=== PATIENT | female | born 1950 | race Caucasian/White ===

== ENCOUNTER → 2017-01-04 | Outpatient (CLI) | payer MEDICARE, OTHER | END | disposition home or self-care (01) | LOC: CVU 14:33 | PROVIDERS: ATTEND Surgery Vascular Surgery | DX: I65.23 Occlusion and stenosis of bilateral carotid arteries (principal); H54.41 Blindness, right eye, normal vision left eye; Z86.73 Personal history of transient ischemic attack (TIA), and cerebral infarction without residual deficits | CPT/HCPCS: 93880 ==

== ENCOUNTER 2018-01-02 10:38 | Inpatient (IN) | payer MEDICARE, OTHER ==
[~2018-01-02] VITALS: Ht 170.2 cm; Wt 121.7 kg
[2018-01-02] MEDS ORDERED: SODIUM CHLORIDE FLUSH 10ML SYR IVF ONE (12:00)
[2018-01-02 12:19] LABS: BASOPHILS # (AUTO) 0.02 x10^3/uL (0-0.1); BASOPHILS % (AUTO) 0 % (0-1); EOSINOPHILS # (AUTO) 0.17 x10^3/uL (0-0.4); EOSINOPHILS % (AUTO) 2 % (1-7); LYMPHOCYTES # (AUTO) 0.65 x10^3/uL (1-3.4); LYMPHOCYTES % (AUTO) 6 % (22-44); MD NO; MEAN CORPUSCULAR HEMOGLOBIN 32.4 pg (27.0-34.8); MEAN CORPUSCULAR HGB CONC 33.9 g/dL (32.4-35.8); MEAN CORPUSCULAR VOLUME 95.6 fL (80-100); MONOCYTES % (AUTO) 5 % (2-9); NEUTROPHILS # (AUTO) 9.11 x10^3/uL (1.8-6.8); NEUTROPHILS % (AUTO) 87 % (42-75); PLATELET COUNT 176 x10^3/uL (130-400); RED BLOOD COUNT 3.58 x10^6/uL (3.82-5.3); RED CELL DISTRIBUTION WIDTH 13.4 % (9.6-15.2)
[2018-01-02 12:29] LABS: ALBUMIN 3.4 g/dL (3.4-5.0); ANION GAP 10 mmol/L (5-15); CALCIUM 8.6 mg/dL (8.5-10.1); CHLORIDE 106 mmol/L (98-107); CREATININE 2.42 mg/dL (0.55-1.02)
[2018-01-02] MEDS ORDERED: CEFAZOLIN PMX 1GM/50ML 50 ML IV ONE (13:00)
[2018-01-02 13:04] LABS: HCT (SEDRATE) 34.2 % (34.6-47.8)
[2018-01-02] MEDS ORDERED: CEFAZOLIN PMX 1GM/50ML 50 ML ONE (13:11)
[2018-01-02] MEDS ORDERED: SODIUM CHLORIDE FLUSH 10ML SYR IVF PRN (13:30)
[2018-01-02] MEDS ORDERED: LIRA0.6P2 SQ (13:36)
[2018-01-02] MEDS ORDERED: PARI2CAP3 PO (13:36)
[2018-01-02] MEDS ORDERED: ATOR10TA9 PO (13:36)
[2018-01-02] MEDS ORDERED: LOSA100T6 PO (13:36)
[2018-01-02] MEDS ORDERED: CARV6.2512 PO (13:36)
[2018-01-02] MEDS ORDERED: ADAL40KI IM (13:36)
[2018-01-02] MEDS ORDERED: AMLO5TAB2 PO (13:36)
[2018-01-02] MEDS ORDERED: LEVO25TA2 PO (13:36)
[2018-01-02] MEDS ORDERED: FURO40TA6 PO (13:36)
[2018-01-02] MEDS ORDERED: FLUT1DIS IH ×2 (13:38)
[2018-01-02] MEDS ORDERED: ALBU5SOL6 INH (13:38)
[2018-01-02] MEDS ORDERED: ACETAMINOPHEN 325 MG TABLET PO PRN (14:00)
[2018-01-02] MEDS ORDERED: ONDANSETRON 2MG/ML, 2ML IVPush PRN (14:00)
[2018-01-02] MEDS ORDERED: morphine SULFATE 10 MG/ML, 1ML IVPush PRN (14:00)
[2018-01-02 14:31] VITALS: BP 148/79
[2018-01-02 14:43] LABS: FREE T4 (FREE THYROXINE) 1.32 ng/dL (0.76-1.46); THYROID STIMULATING HORMONE 1.02 mIU/L (0.358-3.740)
[2018-01-02 15:00] VITALS: BP 148/79
[2018-01-02 15:02] LABS: HEMOGLOBIN A1C 6.3 % (4.2-6.3)
[2018-01-02] MEDS: CEFTAROLINE 300 MG in SODIUM CHLORIDE 0.9% 100 ML IV SCH (16:54)
[2018-01-02] MEDS: HEPARIN 5,000 UNITS/ML, 1ML SQ SCH (16:55)
[2018-01-02] MEDS: INSULIN LISPRO 100 UNITS/ML, PEN SQ-INSULIN SCH ×2 (18:05→21:00)
[2018-01-02] MEDS: ATORVASTATIN 10 MG TABLET PO SCH (21:17)
[2018-01-02] MEDS: CARVEDILOL 6.25 MG TABLET PO SCH (21:17)
[2018-01-02 21:58] VITALS: BP 146/73
[2018-01-03] MEDS: HEPARIN 5,000 UNITS/ML, 1ML SQ SCH ×3 (00:54→18:25)
[2018-01-03 00:56] VITALS: BP 110/66
[2018-01-03 04:32] LABS: BASOPHILS # (AUTO) 0.06 x10^3/uL (0-0.1); BASOPHILS % (AUTO) 1 % (0-1); EOSINOPHILS # (AUTO) 0.15 x10^3/uL (0-0.4); EOSINOPHILS % (AUTO) 2 % (1-7); LYMPHOCYTES # (AUTO) 0.84 x10^3/uL (1-3.4); LYMPHOCYTES % (AUTO) 10 % (22-44); MD NO; MEAN CORPUSCULAR HEMOGLOBIN 32.5 pg (27.0-34.8); MEAN CORPUSCULAR HGB CONC 34.2 g/dL (32.4-35.8); MEAN PLATELET VOLUME 8.3 fL (7.4-10.4); MONOCYTES # (AUTO) 0.58 x10^3/uL (0.2-0.8); MONOCYTES % (AUTO) 7 % (2-9); NEUTROPHILS # (AUTO) 6.97 x10^3/uL (1.8-6.8); NEUTROPHILS % (AUTO) 81 % (42-75); PLATELET COUNT 173 x10^3/uL (130-400); RED BLOOD COUNT 3.29 x10^6/uL (3.82-5.3); RED CELL DISTRIBUTION WIDTH 13.3 % (9.6-15.2)
[2018-01-03 04:35] LABS: ANION GAP 8 mmol/L (5-15); CALCIUM 8.4 mg/dL (8.5-10.1); CHLORIDE 110 mmol/L (98-107)
[2018-01-03 04:37] LABS: CREATININE 2.29 mg/dL (0.55-1.02)
[2018-01-03] MEDS: LEVOTHYROXINE 25 MCG TABLET PO SCH (05:53)
[2018-01-03] MEDS: CEFTAROLINE 300 MG in SODIUM CHLORIDE 0.9% 100 ML IV SCH ×2 (05:54→18:26)
[2018-01-03] MEDS: INSULIN LISPRO 100 UNITS/ML, PEN SQ-INSULIN SCH ×4 (07:00→20:31)
[2018-01-03 08:14] VITALS: BP 133/69
[2018-01-03] MEDS: CARVEDILOL 6.25 MG TABLET PO SCH ×2 (10:01→20:28)
[2018-01-03] MEDS: FUROSEMIDE 40 MG TABLET PO SCH (10:01)
[2018-01-03] MEDS: LOSARTAN 50MG TABLET PO SCH (10:01)
[2018-01-03] MEDS: AMLODIPINE 5 MG TABLET PO SCH (10:01)
[2018-01-03] MEDS: PARICALCITOL 1 MCG CAPSULE PO SCH (10:02)
[2018-01-03 13:09] VITALS: BP 157/80
[2018-01-03 20:10] VITALS: BP 117/55
[2018-01-03] MEDS: ATORVASTATIN 10 MG TABLET PO SCH (20:27)
[2018-01-04] MEDS: HEPARIN 5,000 UNITS/ML, 1ML SQ SCH ×3 (02:03→16:25)
[2018-01-04 04:09] VITALS: BP 108/62
[2018-01-04 05:17] LABS: ANION GAP 7 mmol/L (5-15); CALCIUM 8.6 mg/dL (8.5-10.1); CHLORIDE 109 mmol/L (98-107)
[2018-01-04 05:18] LABS: CREATININE 2.88 mg/dL (0.55-1.02)
[2018-01-04] MEDS: LEVOTHYROXINE 25 MCG TABLET PO SCH (05:58)
[2018-01-04] MEDS: CEFTAROLINE 300 MG in SODIUM CHLORIDE 0.9% 100 ML IV SCH ×2 (05:59→19:09)
[2018-01-04] MEDS: INSULIN LISPRO 100 UNITS/ML, PEN SQ-INSULIN SCH ×4 (07:00→20:22)
[2018-01-04 08:01] VITALS: BP 136/53
[2018-01-04] MEDS: LOSARTAN 50MG TABLET PO SCH (09:04)
[2018-01-04] MEDS: FUROSEMIDE 40 MG TABLET PO SCH (09:05)
[2018-01-04] MEDS: AMLODIPINE 5 MG TABLET PO SCH (09:05)
[2018-01-04] MEDS: CARVEDILOL 6.25 MG TABLET PO SCH ×2 (09:06→20:21)
[2018-01-04] MEDS: PARICALCITOL 1 MCG CAPSULE PO SCH (09:09)
[2018-01-04 12:20] VITALS: BP 126/71
[2018-01-04 20:17] VITALS: BP 151/68
[2018-01-04] MEDS: ATORVASTATIN 10 MG TABLET PO SCH (20:21)
[2018-01-05] MEDS: HEPARIN 5,000 UNITS/ML, 1ML SQ SCH ×2 (00:16→08:36)
[2018-01-05 00:17] VITALS: BP 123/67
[2018-01-05 05:04] LABS: ANION GAP 6 mmol/L (5-15); CALCIUM 8.4 mg/dL (8.5-10.1); CHLORIDE 108 mmol/L (98-107)
[2018-01-05 05:05] LABS: CREATININE 2.92 mg/dL (0.55-1.02)
[2018-01-05] MEDS: CEFTAROLINE 300 MG in SODIUM CHLORIDE 0.9% 100 ML IV SCH (05:45)
[2018-01-05] MEDS: LEVOTHYROXINE 25 MCG TABLET PO SCH (05:45)
[2018-01-05] MEDS: INSULIN LISPRO 100 UNITS/ML, PEN SQ-INSULIN SCH ×3 (07:00→16:00)
[2018-01-05 07:27] VITALS: BP 117/72
[2018-01-05] MEDS: AMLODIPINE 5 MG TABLET PO SCH (08:32)
[2018-01-05] MEDS: FUROSEMIDE 40 MG TABLET PO SCH (08:33)
[2018-01-05] MEDS: CARVEDILOL 6.25 MG TABLET PO SCH (08:33)
[2018-01-05] MEDS: LOSARTAN 50MG TABLET PO SCH (08:34)
[2018-01-05] MEDS ORDERED: AMOXICILLIN/CLAV 875-125MG TABLET PO SCH (09:00)
[2018-01-05] MEDS ORDERED: SULFAMETH./TRIMETHOPRIM SS 400MG/80MG TABLET PO SCH (09:00)
[2018-01-05] MEDS: PARICALCITOL 1 MCG CAPSULE PO SCH (09:00)
[2018-01-05 13:21] VITALS: BP 141/65
[2018-01-05] MEDS ORDERED: AMOX1TAB12 PO (14:46)
[2018-01-05] MEDS ORDERED: TRAM50TA2 PO (14:46)
[2018-01-05] MEDS ORDERED: SULF-16 PO (14:46)
[2018-01-05] MEDS ORDERED: LACT1CAP24 PO (14:49)
== END 2018-01-05 16:15 | disposition home or self-care (01) | DRG 603 ==
LOC: ED 13:18 → 3NE 13:22 → 3NW 14:32 → DCLOUNGE 01-05 15:58
PROVIDERS: ADMIT Hospitalist; ATTEND Hospitalist
DX: L03.116 Cellulitis of left lower limb (principal); N18.4 Chronic kidney disease, stage 4 (severe); Z68.41 Body mass index [BMI] 40.0-44.9, adult; E11.42 Type 2 diabetes mellitus with diabetic polyneuropathy; E11.22 Type 2 diabetes mellitus with diabetic chronic kidney disease; I12.9 Hypertensive chronic kidney disease with stage 1 through stage 4 chronic kidney disease, or unspecified chronic kidney disease; E66.01 Morbid (severe) obesity due to excess calories; J40 Bronchitis, not specified as acute or chronic; E03.9 Hypothyroidism, unspecified; E78.5 Hyperlipidemia, unspecified; E78.00 Pure hypercholesterolemia, unspecified; M06.9 Rheumatoid arthritis, unspecified; R00.0 Tachycardia, unspecified; Z79.899 Other long term (current) drug therapy; Z87.891 Personal history of nicotine dependence; Z89.421 Acquired absence of other right toe(s); Z82.49 Family history of ischemic heart disease and other diseases of the circulatory system; Z90.49 Acquired absence of other specified parts of digestive tract; Z98.84 Bariatric surgery status; Z88.0 Allergy status to penicillin
CPT/HCPCS: 36415; 80048; 82040; 82962; 83036; 83605; 83735; 84100; 84145; 84439; 84443; 85025; 85651; 86140; 87040; 96365; 99285; J0690; J0712; J1644; J1815

== ENCOUNTER 2018-01-09 12:39 | Inpatient (IN) | payer MEDICARE, OTHER ==
[~2018-01-09] VITALS: Ht 170.2 cm; Wt 119.5 kg
[~2018-01-09 12:39] MED LIST: ADAL40KI IM; ALBU5SOL6 INH; AMLO5TAB7 PO; AMOX1TAB12 PO; ATOR10TA9 PO; CARV6.2512 PO; FLUT1DIS IH; FURO40TA6 PO; LACT1CAP24 PO; LEVO25TA2 PO; LIRA0.6P2 SQ; LOSA100T7 PO; PARI2CAP3 PO; SULF-16 PO; TRAM50TA2 PO
[2018-01-09] MEDS ORDERED: VANCOMYCIN PER PHARMACY MC ONE (13:00)
[2018-01-09] MEDS ORDERED: SODIUM CHLORIDE FLUSH 10ML SYR IVF ONE (13:00)
[2018-01-09 13:30] LABS: BASOPHILS # (AUTO) 0.02 x10^3/uL (0-0.1); BASOPHILS % (AUTO) 0 % (0-1); EOSINOPHILS # (AUTO) 0.25 x10^3/uL (0-0.4); EOSINOPHILS % (AUTO) 3 % (1-7); LYMPHOCYTES # (AUTO) 0.65 x10^3/uL (1-3.4); LYMPHOCYTES % (AUTO) 7 % (22-44); MD NO; MEAN CORPUSCULAR HEMOGLOBIN 31.5 pg (27.0-34.8); MEAN CORPUSCULAR HGB CONC 33.9 g/dL (32.4-35.8); MEAN PLATELET VOLUME 7.6 fL (7.4-10.4); MONOCYTES # (AUTO) 0.62 x10^3/uL (0.2-0.8); MONOCYTES % (AUTO) 7 % (2-9); NEUTROPHILS # (AUTO) 7.94 x10^3/uL (1.8-6.8); NEUTROPHILS % (AUTO) 84 % (42-75); PLATELET COUNT 280 x10^3/uL (130-400); RED BLOOD COUNT 3.26 x10^6/uL (3.82-5.3)
[2018-01-09] MEDS ORDERED: VANCOMYCIN 1,700 MG in SODIUM CHLORIDE 0.9% 250 ML IV ONE (13:30)
[2018-01-09 13:37] LABS: ALBUMIN 2.8 g/dL (3.4-5.0); ANION GAP 11 mmol/L (5-15); CALCIUM 8.7 mg/dL (8.5-10.1); CHLORIDE 107 mmol/L (98-107); CREATININE 3.61 mg/dL (0.55-1.02)
[2018-01-09] MEDS ORDERED: ONDANSETRON ODT 4 MG PO PRN (15:00)
[2018-01-09] MEDS ORDERED: GLUCAGON 1 MG IM PRN (15:00)
[2018-01-09] MEDS ORDERED: DEXTROSE 4 GM TAB.CHEW PO PRN (15:00)
[2018-01-09] MEDS ORDERED: DEXTROSE 50%, 50ML SYRINGE IVPush PRN (15:00)
[2018-01-09] MEDS ORDERED: VANCOMYCIN PER PHARMACY MC PRN (15:00)
[2018-01-09] MEDS ORDERED: ACETAMINOPHEN 325 MG TABLET PO PRN (15:00)
[2018-01-09] MEDS ORDERED: ONDANSETRON 2MG/ML, 2ML IVPush PRN (15:00)
[2018-01-09] MEDS ORDERED: hydrALAzine 20 MG/ML, 1ML IVPush PRN (15:00)
[2018-01-09] MEDS ORDERED: LABETALOL 5MG/ML, 20ML IVPush PRN (15:00)
[2018-01-09] MEDS ORDERED: morphine SULFATE 10 MG/ML, 1ML IVPush PRN (15:00)
[2018-01-09] MEDS ORDERED: TEMAZEPAM 15 MG CAPSULE PO PRN (15:00)
[2018-01-09] MEDS ORDERED: PHARMACOKINETIC MONITORING MC PRN (15:30)
[2018-01-09] MEDS ORDERED: PHARMACOKINETIC CONSULTATION MC ONE (15:30)
[2018-01-09] MEDS: INSULIN LISPRO 100 UNITS/ML, PEN SQ-INSULIN SCH ×2 (16:00→20:48)
[2018-01-09] MEDS: HEPARIN 5,000 UNITS/ML, 1ML SQ SCH (18:21)
[2018-01-09 18:44] VITALS: BP 126/73
[2018-01-09 19:07] VITALS: BP 107/63
[2018-01-09] MEDS: ATORVASTATIN 10 MG TABLET PO SCH (20:26)
[2018-01-09] MEDS: CARVEDILOL 6.25 MG TABLET PO SCH (20:26)
[2018-01-09] MEDS: PIPERACILLIN/TAZO 2.25 GM in SODIUM CHLORIDE 0.9% 50 ML IV SCH (20:26)
[2018-01-09] MEDS: SODIUM CHLORIDE FLUSH 10ML SYR IVF SCH (20:28)
[2018-01-10 01:28] VITALS: BP 106/66
[2018-01-10] MEDS: HEPARIN 5,000 UNITS/ML, 1ML SQ SCH ×3 (02:41→17:09)
[2018-01-10 05:09] LABS: BASOPHILS # (AUTO) 0.04 x10^3/uL (0-0.1); BASOPHILS % (AUTO) 1 % (0-1); EOSINOPHILS # (AUTO) 0.28 x10^3/uL (0-0.4); EOSINOPHILS % (AUTO) 4 % (1-7); LYMPHOCYTES # (AUTO) 0.83 x10^3/uL (1-3.4); LYMPHOCYTES % (AUTO) 12 % (22-44); MD NO; MEAN CORPUSCULAR HEMOGLOBIN 31.7 pg (27.0-34.8); MEAN CORPUSCULAR HGB CONC 33.9 g/dL (32.4-35.8); MEAN CORPUSCULAR VOLUME 93.6 fL (80-100); MEAN PLATELET VOLUME 7.6 fL (7.4-10.4); MONOCYTES # (AUTO) 0.56 x10^3/uL (0.2-0.8); MONOCYTES % (AUTO) 8 % (2-9); NEUTROPHILS # (AUTO) 5.27 x10^3/uL (1.8-6.8); NEUTROPHILS % (AUTO) 76 % (42-75); PLATELET COUNT 248 x10^3/uL (130-400); RED BLOOD COUNT 2.97 x10^6/uL (3.82-5.3)
[2018-01-10 05:16] LABS: ALBUMIN 2.3 g/dL (3.4-5.0); ANION GAP 9 mmol/L (5-15); CALCIUM 8.5 mg/dL (8.5-10.1); CHLORIDE 111 mmol/L (98-107)
[2018-01-10 05:20] LABS: ALANINE AMINOTRANSFERASE 12 U/L (12-78); ALKALINE PHOSPHATASE 70 U/L (45-117); BILIRUBIN,TOTAL 0.4 mg/dL (0.2-1.0); CREATININE 3.29 mg/dL (0.55-1.02); TOTAL PROTEIN 6.4 g/dL (6.4-8.2)
[2018-01-10] MEDS: PIPERACILLIN/TAZO 2.25 GM in SODIUM CHLORIDE 0.9% 50 ML IV SCH ×3 (05:29→20:46)
[2018-01-10] MEDS: LEVOTHYROXINE 25 MCG TABLET PO SCH (05:29)
[2018-01-10 05:33] LABS: HEMOGLOBIN A1C 6.3 % (4.2-6.3)
[2018-01-10 07:11] VITALS: BP 129/70
[2018-01-10] MEDS: CARVEDILOL 6.25 MG TABLET PO SCH ×2 (07:55→20:46)
[2018-01-10] MEDS: AMLODIPINE 5 MG TABLET PO SCH (07:55)
[2018-01-10] MEDS: PARICALCITOL 1 MCG CAPSULE PO SCH (07:56)
[2018-01-10] MEDS: SODIUM CHLORIDE FLUSH 10ML SYR IVF SCH ×2 (07:56→20:46)
[2018-01-10] MEDS: INSULIN LISPRO 100 UNITS/ML, PEN SQ-INSULIN SCH ×4 (07:59→21:00)
[2018-01-10] MEDS ORDERED: FUROSEMIDE 40 MG TABLET PO SCH (09:00)
[2018-01-10] MEDS ORDERED: LOSARTAN 50MG TABLET PO SCH (09:00)
[2018-01-10 12:00] VITALS: BP 141/76
[2018-01-10 19:34] VITALS: BP 114/65
[2018-01-10] MEDS: ATORVASTATIN 10 MG TABLET PO SCH (20:46)
[2018-01-11 01:03] VITALS: BP 148/75
[2018-01-11] MEDS: HEPARIN 5,000 UNITS/ML, 1ML SQ SCH ×3 (01:57→17:50)
[2018-01-11] MEDS: PIPERACILLIN/TAZO 2.25 GM in SODIUM CHLORIDE 0.9% 50 ML IV SCH ×4 (04:53→23:42)
[2018-01-11 04:55] LABS: BASOPHILS # (AUTO) 0.01 x10^3/uL (0-0.1); BASOPHILS % (AUTO) 0 % (0-1); EOSINOPHILS # (AUTO) 0.23 x10^3/uL (0-0.4); EOSINOPHILS % (AUTO) 3 % (1-7); LYMPHOCYTES # (AUTO) 1.18 x10^3/uL (1-3.4); LYMPHOCYTES % (AUTO) 17 % (22-44); MD NO; MEAN CORPUSCULAR HEMOGLOBIN 31.4 pg (27.0-34.8); MEAN CORPUSCULAR HGB CONC 33.3 g/dL (32.4-35.8); MEAN CORPUSCULAR VOLUME 94.2 fL (80-100); MEAN PLATELET VOLUME 7.6 fL (7.4-10.4); MONOCYTES # (AUTO) 0.47 x10^3/uL (0.2-0.8); MONOCYTES % (AUTO) 7 % (2-9); NEUTROPHILS # (AUTO) 4.99 x10^3/uL (1.8-6.8); NEUTROPHILS % (AUTO) 73 % (42-75); PLATELET COUNT 258 x10^3/uL (130-400); RED BLOOD COUNT 2.94 x10^6/uL (3.82-5.3)
[2018-01-11 05:15] LABS: ANION GAP 7 mmol/L (5-15); CALCIUM 8.6 mg/dL (8.5-10.1); CHLORIDE 114 mmol/L (98-107)
[2018-01-11 05:19] LABS: CREATININE 3.39 mg/dL (0.55-1.02); VANCOMYCIN,RANDOM 10.4 mcg/mL
[2018-01-11] MEDS: LEVOTHYROXINE 25 MCG TABLET PO SCH (05:36)
[2018-01-11 06:44] VITALS: BP 121/68
[2018-01-11] MEDS: SODIUM CHLORIDE 0.9% 500 ML IV SCH ×2 (08:30→17:50)
[2018-01-11] MEDS: INSULIN LISPRO 100 UNITS/ML, PEN SQ-INSULIN SCH ×4 (08:31→20:36)
[2018-01-11] MEDS: SODIUM CHLORIDE FLUSH 10ML SYR IVF SCH ×2 (08:32→20:36)
[2018-01-11] MEDS: AMLODIPINE 5 MG TABLET PO SCH (08:32)
[2018-01-11] MEDS: CARVEDILOL 6.25 MG TABLET PO SCH ×2 (08:32→20:36)
[2018-01-11] MEDS: PARICALCITOL 1 MCG CAPSULE PO SCH (08:33)
[2018-01-11] MEDS ORDERED: VANCOMYCIN 2,000 MG in SODIUM CHLORIDE 0.9% 500 ML IV ONE (10:00)
[2018-01-11 15:42] VITALS: BP 123/72
[2018-01-11 19:27] VITALS: BP 108/65
[2018-01-11] MEDS: ATORVASTATIN 10 MG TABLET PO SCH (20:36)
[2018-01-12] MEDS: HEPARIN 5,000 UNITS/ML, 1ML SQ SCH ×3 (01:08→18:00)
[2018-01-12] MEDS: SODIUM CHLORIDE 0.9% 500 ML IV SCH (01:08)
[2018-01-12 03:50] VITALS: BP 121/66
[2018-01-12 05:52] LABS: ANION GAP 7 mmol/L (5-15); CALCIUM 8.6 mg/dL (8.5-10.1); CHLORIDE 116 mmol/L (98-107); CREATININE 2.91 mg/dL (0.55-1.02)
[2018-01-12] MEDS: LEVOTHYROXINE 25 MCG TABLET PO SCH (06:14)
[2018-01-12] MEDS: PIPERACILLIN/TAZO 2.25 GM in SODIUM CHLORIDE 0.9% 50 ML IV SCH ×2 (06:14→12:09)
[2018-01-12 06:56] VITALS: BP 124/70
[2018-01-12] MEDS: INSULIN LISPRO 100 UNITS/ML, PEN SQ-INSULIN SCH ×4 (07:00→20:04)
[2018-01-12] MEDS: PARICALCITOL 1 MCG CAPSULE PO SCH (08:33)
[2018-01-12] MEDS: CARVEDILOL 6.25 MG TABLET PO SCH ×2 (08:34→20:03)
[2018-01-12] MEDS: AMLODIPINE 5 MG TABLET PO SCH (08:34)
[2018-01-12] MEDS: SODIUM CHLORIDE FLUSH 10ML SYR IVF SCH ×2 (08:34→20:04)
[2018-01-12 14:33] VITALS: BP 134/73
[2018-01-12 19:11] VITALS: BP 136/64
[2018-01-12] MEDS: PIPERACILLIN/TAZO/PMX 2.25GM 50 ML IV SCH (20:03)
[2018-01-12] MEDS: ATORVASTATIN 10 MG TABLET PO SCH (20:03)
[2018-01-13] MEDS: PIPERACILLIN/TAZO/PMX 2.25GM 50 ML IV SCH ×4 (02:22→23:46)
[2018-01-13] MEDS: HEPARIN 5,000 UNITS/ML, 1ML SQ SCH ×3 (02:22→18:00)
[2018-01-13 02:27] VITALS: BP 125/64
[2018-01-13] MEDS: LEVOTHYROXINE 25 MCG TABLET PO SCH (05:44)
[2018-01-13 06:35] LABS: BASOPHILS # (AUTO) 0.02 x10^3/uL (0-0.1); BASOPHILS % (AUTO) 0 % (0-1); EOSINOPHILS # (AUTO) 0.33 x10^3/uL (0-0.4); EOSINOPHILS % (AUTO) 5 % (1-7); LYMPHOCYTES # (AUTO) 1.12 x10^3/uL (1-3.4); LYMPHOCYTES % (AUTO) 15 % (22-44); MD NO; MEAN CORPUSCULAR HEMOGLOBIN 32.5 pg (27.0-34.8); MEAN PLATELET VOLUME 7.4 fL (7.4-10.4); MONOCYTES # (AUTO) 0.37 x10^3/uL (0.2-0.8); MONOCYTES % (AUTO) 5 % (2-9); NEUTROPHILS # (AUTO) 5.46 x10^3/uL (1.8-6.8); NEUTROPHILS % (AUTO) 75 % (42-75); PLATELET COUNT 292 x10^3/uL (130-400); RED BLOOD COUNT 3.08 x10^6/uL (3.82-5.3); RED CELL DISTRIBUTION WIDTH 13.4 % (9.6-15.2)
[2018-01-13 06:46] LABS: ANION GAP 6 mmol/L (5-15); CHLORIDE 116 mmol/L (98-107); CREATININE 2.42 mg/dL (0.55-1.02)
[2018-01-13 06:47] LABS: PROTHROMBIN TIME 10.3 Seconds (9.6-11.5)
[2018-01-13 06:48] LABS: VANCOMYCIN,RANDOM 16.8 mcg/mL
[2018-01-13] MEDS: INSULIN LISPRO 100 UNITS/ML, PEN SQ-INSULIN SCH ×4 (07:00→23:47)
[2018-01-13 07:18] VITALS: BP 144/74
[2018-01-13] MEDS: SODIUM CHLORIDE FLUSH 10ML SYR IVF SCH ×2 (08:26→23:46)
[2018-01-13] MEDS: CARVEDILOL 6.25 MG TABLET PO SCH ×2 (08:26→23:48)
[2018-01-13] MEDS: AMLODIPINE 5 MG TABLET PO SCH (09:00)
[2018-01-13] MEDS: PARICALCITOL 1 MCG CAPSULE PO SCH (09:00)
[2018-01-13] MEDS ORDERED: VANCOMYCIN 2,000 MG in SODIUM CHLORIDE 0.9% 500 ML IV SCH (09:30)
[2018-01-13 12:28] VITALS: BP 144/71
[2018-01-13 18:42] VITALS: BP 158/76
[2018-01-13] MEDS ORDERED: FENTANYL PF 100 MCG/2ML ONE ×2 (20:12→22:03)
[2018-01-13] MEDS ORDERED: MIDAZOLAM 1 MG/ML, 2ML ONE (20:12)
[2018-01-13] MEDS ORDERED: ONDANSETRON 2MG/ML, 2ML ONE (20:52)
[2018-01-13] MEDS ORDERED: VANCOMYCIN 500 MG ONE (20:52)
[2018-01-13] MEDS ORDERED: PROPOFOL 10 MG/ML, 20ML ONE (20:52)
[2018-01-13] MEDS ORDERED: CEFAZOLIN 1,000 MG ONE (20:52)
[2018-01-13] MEDS ORDERED: ACETAMINOPHEN 325 MG TABLET PO PRN (22:00)
[2018-01-13] MEDS ORDERED: MIDAZOLAM 1 MG/ML, 2ML IV PRN (22:00)
[2018-01-13] MEDS ORDERED: PROMETHAZINE 25 MG/ML, 1ML IV PRN (22:00)
[2018-01-13] MEDS ORDERED: PROMETHAZINE 25 MG SUPP PR PRN (22:00)
[2018-01-13] MEDS ORDERED: PROMETHAZINE 12.5 MG SUPP PR PRN (22:00)
[2018-01-13] MEDS ORDERED: ONDANSETRON ODT 8 MG PO PRN (22:00)
[2018-01-13] MEDS ORDERED: MORPHINE SULFATE 4 MG/ML, 1ML IVPush PRN (22:00)
[2018-01-13] MEDS ORDERED: FENTANYL PF 100 MCG/2ML IV PRN (22:00)
[2018-01-13] MEDS ORDERED: OXYcodone 5 MG/5 ML ORAL.SOL UDC PO PRN (22:00)
[2018-01-13] MEDS ORDERED: EPHEDRINE 50 MG/ML, 1ML IM PRN (22:00)
[2018-01-13] MEDS ORDERED: MORPHINE SULFATE 4 MG/ML, 1ML ONE (22:08)
[2018-01-13] MEDS ORDERED: OXYcodone 5 MG/5 ML ORAL.SOL UDC ONE (22:09)
[2018-01-13] MEDS ORDERED: LABETALOL 5MG/ML, 20ML IV PRN (22:30)
[2018-01-13] MEDS ORDERED: LIDOCAINE/PF 1%, 30ML ONE (23:27)
[2018-01-13] MEDS ORDERED: BUPIVACAINE/PF 0.5% ONE (23:27)
[2018-01-13] MEDS ORDERED: ALBUTEROL SULFATE 2.5MG/0.5ML NPPB PRN (23:45)
[2018-01-13] MEDS: ATORVASTATIN 10 MG TABLET PO SCH (23:47)
[2018-01-14] MEDS: HEPARIN 5,000 UNITS/ML, 1ML SQ SCH ×3 (02:48→20:35)
[2018-01-14 03:01] VITALS: BP 164/80
[2018-01-14] MEDS: PIPERACILLIN/TAZO/PMX 2.25GM 50 ML IV SCH ×3 (06:13→17:12)
[2018-01-14] MEDS: LEVOTHYROXINE 25 MCG TABLET PO SCH (06:13)
[2018-01-14] MEDS: HYDROcodone/APAP 5/325 TABLET PO PRN (06:15)
[2018-01-14 06:30] VITALS: BP 129/70
[2018-01-14] MEDS: INSULIN LISPRO 100 UNITS/ML, PEN SQ-INSULIN SCH ×4 (08:53→20:35)
[2018-01-14] MEDS: FUROSEMIDE 40 MG TABLET PO SCH (08:54)
[2018-01-14] MEDS: PARICALCITOL 1 MCG CAPSULE PO SCH (08:54)
[2018-01-14] MEDS: LOSARTAN 50MG TABLET PO SCH (08:54)
[2018-01-14] MEDS: AMLODIPINE 5 MG TABLET PO SCH (08:55)
[2018-01-14] MEDS: SODIUM CHLORIDE FLUSH 10ML SYR IVF SCH ×2 (08:55→20:49)
[2018-01-14] MEDS: CARVEDILOL 6.25 MG TABLET PO SCH ×2 (08:55→20:36)
[2018-01-14] MEDS: FLUTICASONE/VILANTEROL 200-25MCG/INH INH SCH (09:00)
[2018-01-14] MEDS: VICTOZA 1.8 MG SQ SCH (09:00)
[2018-01-14] MEDS: HYDROcodone/APAP 10/325 MG TABLET PO PRN ×2 (12:10→20:37)
[2018-01-14 12:50] VITALS: BP 117/72
[2018-01-14 19:01] VITALS: BP 105/55
[2018-01-14] MEDS: ATORVASTATIN 10 MG TABLET PO SCH (20:37)
[2018-01-14] MEDS ORDERED: HYDROcodone/APAP 10/325 MG TABLET PO PRN (23:30)
[2018-01-15] MEDS: PIPERACILLIN/TAZO/PMX 2.25GM 50 ML IV SCH ×3 (00:19→14:56)
[2018-01-15 02:51] VITALS: BP 114/72
[2018-01-15] MEDS: LEVOTHYROXINE 25 MCG TABLET PO SCH (05:02)
[2018-01-15] MEDS: HEPARIN 5,000 UNITS/ML, 1ML SQ SCH ×3 (05:02→20:12)
[2018-01-15 05:30] LABS: BASOPHILS # (AUTO) 0.04 x10^3/uL (0-0.1); BASOPHILS % (AUTO) 1 % (0-1); EOSINOPHILS # (AUTO) 0.22 x10^3/uL (0-0.4); EOSINOPHILS % (AUTO) 3 % (1-7); LYMPHOCYTES # (AUTO) 1.16 x10^3/uL (1-3.4); LYMPHOCYTES % (AUTO) 13 % (22-44); MD NO; MEAN CORPUSCULAR HEMOGLOBIN 32.6 pg (27.0-34.8); MEAN CORPUSCULAR HGB CONC 34.6 g/dL (32.4-35.8); MEAN CORPUSCULAR VOLUME 94.4 fL (80-100); MONOCYTES # (AUTO) 0.53 x10^3/uL (0.2-0.8); MONOCYTES % (AUTO) 6 % (2-9); NEUTROPHILS # (AUTO) 7.11 x10^3/uL (1.8-6.8); NEUTROPHILS % (AUTO) 78 % (42-75); PLATELET COUNT 256 x10^3/uL (130-400); RED CELL DISTRIBUTION WIDTH 13.2 % (9.6-15.2)
[2018-01-15 05:38] LABS: CHLORIDE 114 mmol/L (98-107)
[2018-01-15 05:45] LABS: ALANINE AMINOTRANSFERASE 17 U/L (12-78); ALBUMIN 2.2 g/dL (3.4-5.0); ALKALINE PHOSPHATASE 69 U/L (45-117); ANION GAP 6 mmol/L (5-15); BILIRUBIN,TOTAL 0.6 mg/dL (0.2-1.0); CALCIUM 8.2 mg/dL (8.5-10.1); CREATININE 2.67 mg/dL (0.55-1.02); TOTAL PROTEIN 5.9 g/dL (6.4-8.2)
[2018-01-15] MEDS ORDERED: SODIUM POLYSTYRENE SULFONATE ORAL SUSP PO ONE (06:30)
[2018-01-15] MEDS: INSULIN LISPRO 100 UNITS/ML, PEN SQ-INSULIN SCH ×4 (07:00→20:27)
[2018-01-15] MEDS ORDERED: LINEZOLID PMX 600MG/300ML 300 ML IV SCH (07:00)
[2018-01-15 07:22] VITALS: BP_SYST 155; BP_SYST 160; BP_DIAS 71
[2018-01-15] MEDS: VICTOZA 1.8 MG SQ SCH (09:00)
[2018-01-15] MEDS: PARICALCITOL 1 MCG CAPSULE PO SCH (10:11)
[2018-01-15] MEDS: AMLODIPINE 5 MG TABLET PO SCH (10:11)
[2018-01-15] MEDS: CARVEDILOL 6.25 MG TABLET PO SCH ×2 (10:12→20:13)
[2018-01-15] MEDS: SODIUM CHLORIDE FLUSH 10ML SYR IVF SCH ×2 (10:13→20:13)
[2018-01-15] MEDS: FUROSEMIDE 40 MG TABLET PO SCH (10:13)
[2018-01-15] MEDS: LOSARTAN 50MG TABLET PO SCH (10:13)
[2018-01-15 12:15] LABS: ANION GAP 8 mmol/L (5-15); CALCIUM 8.3 mg/dL (8.5-10.1); CHLORIDE 111 mmol/L (98-107); CREATININE 2.56 mg/dL (0.55-1.02)
[2018-01-15 12:22] VITALS: BP 152/74
[2018-01-15] MEDS: FLUTICASONE/VILANTEROL 200-25MCG/INH INH SCH (12:34)
[2018-01-15 18:52] VITALS: BP 120/71
[2018-01-15] MEDS: ATORVASTATIN 10 MG TABLET PO SCH (20:12)
[2018-01-16 02:19] VITALS: BP 115/67
[2018-01-16] MEDS: HYDROcodone/APAP 5/325 TABLET PO PRN (02:26)
[2018-01-16] MEDS: LEVOTHYROXINE 25 MCG TABLET PO SCH (05:18)
[2018-01-16] MEDS: HEPARIN 5,000 UNITS/ML, 1ML SQ SCH ×3 (05:19→20:14)
[2018-01-16 06:12] LABS: BASOPHILS # (AUTO) 0.01 x10^3/uL (0-0.1); BASOPHILS % (AUTO) 0 % (0-1); EOSINOPHILS # (AUTO) 0.27 x10^3/uL (0-0.4); EOSINOPHILS % (AUTO) 3 % (1-7); LYMPHOCYTES % (AUTO) 13 % (22-44); MD NO; MEAN CORPUSCULAR HEMOGLOBIN 31.5 pg (27.0-34.8); MEAN CORPUSCULAR VOLUME 92.6 fL (80-100); MEAN PLATELET VOLUME 7.6 fL (7.4-10.4); MONOCYTES # (AUTO) 0.43 x10^3/uL (0.2-0.8); MONOCYTES % (AUTO) 6 % (2-9); NEUTROPHILS # (AUTO) 6.12 x10^3/uL (1.8-6.8); NEUTROPHILS % (AUTO) 78 % (42-75); PLATELET COUNT 261 x10^3/uL (130-400); RED BLOOD COUNT 2.84 x10^6/uL (3.82-5.3); RED CELL DISTRIBUTION WIDTH 13.2 % (9.6-15.2)
[2018-01-16 06:17] LABS: ALBUMIN 2.3 g/dL (3.4-5.0); ANION GAP 9 mmol/L (5-15); CALCIUM 8.5 mg/dL (8.5-10.1); CHLORIDE 111 mmol/L (98-107)
[2018-01-16 06:21] LABS: ALANINE AMINOTRANSFERASE 18 U/L (12-78); ALKALINE PHOSPHATASE 71 U/L (45-117); BILIRUBIN,TOTAL 0.4 mg/dL (0.2-1.0); CREATININE 2.44 mg/dL (0.55-1.02); TOTAL PROTEIN 6.2 g/dL (6.4-8.2)
[2018-01-16 07:17] VITALS: BP 146/71
[2018-01-16] MEDS: INSULIN LISPRO 100 UNITS/ML, PEN SQ-INSULIN SCH ×4 (08:12→20:26)
[2018-01-16] MEDS: SODIUM CHLORIDE FLUSH 10ML SYR IVF SCH ×2 (09:00→20:14)
[2018-01-16] MEDS: VICTOZA 1.8 MG SQ SCH (09:00)
[2018-01-16] MEDS: FLUTICASONE/VILANTEROL 200-25MCG/INH INH SCH (09:17)
[2018-01-16] MEDS: CEFTAROLINE 600 MG in SODIUM CHLORIDE 0.9% 100 ML IV SCH (09:18)
[2018-01-16] MEDS: AMLODIPINE 5 MG TABLET PO SCH (09:19)
[2018-01-16] MEDS: FUROSEMIDE 40 MG TABLET PO SCH (09:19)
[2018-01-16] MEDS: CARVEDILOL 6.25 MG TABLET PO SCH ×2 (09:19→20:14)
[2018-01-16] MEDS: LOSARTAN 50MG TABLET PO SCH (09:19)
[2018-01-16] MEDS: PARICALCITOL 1 MCG CAPSULE PO SCH (09:20)
[2018-01-16 12:50] VITALS: BP 128/64
[2018-01-16 19:04] VITALS: BP 124/70
[2018-01-16] MEDS: ATORVASTATIN 10 MG TABLET PO SCH (20:14)
[2018-01-16] MEDS ORDERED: INSULIN GLARGINE 100 UNITS/ML, PEN SQ-INSULIN SCH (21:00)
[2018-01-17 01:32] VITALS: BP 128/70
[2018-01-17] MEDS: LEVOTHYROXINE 25 MCG TABLET PO SCH (05:19)
[2018-01-17] MEDS: HEPARIN 5,000 UNITS/ML, 1ML SQ SCH ×3 (05:19→21:37)
[2018-01-17 05:24] LABS: BASOPHILS % (AUTO) 0 % (0-1); EOSINOPHILS # (AUTO) 0.29 x10^3/uL (0-0.4); EOSINOPHILS % (AUTO) 4 % (1-7); LYMPHOCYTES # (AUTO) 0.87 x10^3/uL (1-3.4); LYMPHOCYTES % (AUTO) 13 % (22-44); MD NO; MEAN CORPUSCULAR HEMOGLOBIN 31.8 pg (27.0-34.8); MEAN CORPUSCULAR HGB CONC 34.1 g/dL (32.4-35.8); MEAN CORPUSCULAR VOLUME 93.3 fL (80-100); MEAN PLATELET VOLUME 7.7 fL (7.4-10.4); MONOCYTES % (AUTO) 6 % (2-9); NEUTROPHILS # (AUTO) 5.15 x10^3/uL (1.8-6.8); NEUTROPHILS % (AUTO) 77 % (42-75); PLATELET COUNT 264 x10^3/uL (130-400); RED CELL DISTRIBUTION WIDTH 13.3 % (9.6-15.2)
[2018-01-17 05:35] LABS: ALBUMIN 2.4 g/dL (3.4-5.0); ANION GAP 9 mmol/L (5-15); CALCIUM 8.5 mg/dL (8.5-10.1); CHLORIDE 112 mmol/L (98-107)
[2018-01-17 05:38] LABS: ALANINE AMINOTRANSFERASE 18 U/L (12-78); ALKALINE PHOSPHATASE 76 U/L (45-117); BILIRUBIN,TOTAL 0.3 mg/dL (0.2-1.0); CREATININE 2.33 mg/dL (0.55-1.02); TOTAL PROTEIN 6.3 g/dL (6.4-8.2)
[2018-01-17 07:24] VITALS: BP 131/66
[2018-01-17] MEDS: INSULIN LISPRO 100 UNITS/ML, PEN SQ-INSULIN SCH ×4 (08:53→21:39)
[2018-01-17] MEDS: CEFTAROLINE 600 MG in SODIUM CHLORIDE 0.9% 100 ML IV SCH (08:53)
[2018-01-17] MEDS: FLUTICASONE/VILANTEROL 200-25MCG/INH INH SCH (08:53)
[2018-01-17] MEDS: AMLODIPINE 5 MG TABLET PO SCH (08:54)
[2018-01-17] MEDS: LOSARTAN 50MG TABLET PO SCH (08:54)
[2018-01-17] MEDS: PARICALCITOL 1 MCG CAPSULE PO SCH (08:54)
[2018-01-17] MEDS: FUROSEMIDE 40 MG TABLET PO SCH (08:55)
[2018-01-17] MEDS: CARVEDILOL 6.25 MG TABLET PO SCH ×2 (08:55→21:37)
[2018-01-17] MEDS: SODIUM CHLORIDE FLUSH 10ML SYR IVF SCH ×2 (09:00→21:40)
[2018-01-17] MEDS: VICTOZA 1.8 MG SQ SCH (09:00)
[2018-01-17 13:10] VITALS: BP 118/67
[2018-01-17 20:09] VITALS: BP 135/71
[2018-01-17] MEDS: ATORVASTATIN 10 MG TABLET PO SCH (21:37)
[2018-01-17] MEDS: INSULIN GLARGINE 100 UNITS/ML, PEN SQ-INSULIN SCH (21:39)
[2018-01-18 01:52] VITALS: BP 119/71
[2018-01-18 03:29] LABS: ANION GAP 7 mmol/L (5-15); CALCIUM 8.6 mg/dL (8.5-10.1); CHLORIDE 111 mmol/L (98-107); CREATININE 2.47 mg/dL (0.55-1.02)
[2018-01-18] MEDS: LEVOTHYROXINE 25 MCG TABLET PO SCH (05:28)
[2018-01-18] MEDS: HEPARIN 5,000 UNITS/ML, 1ML SQ SCH ×3 (05:28→21:02)
[2018-01-18 06:50] VITALS: BP 105/58
[2018-01-18] MEDS: INSULIN LISPRO 100 UNITS/ML, PEN SQ-INSULIN SCH ×4 (07:00→21:03)
[2018-01-18] MEDS: FLUTICASONE/VILANTEROL 200-25MCG/INH INH SCH (08:44)
[2018-01-18] MEDS: CEFTAROLINE 600 MG in SODIUM CHLORIDE 0.9% 100 ML IV SCH (08:44)
[2018-01-18] MEDS: CARVEDILOL 6.25 MG TABLET PO SCH (08:48)
[2018-01-18] MEDS: LOSARTAN 50MG TABLET PO SCH (08:48)
[2018-01-18] MEDS: FUROSEMIDE 40 MG TABLET PO SCH (08:50)
[2018-01-18] MEDS: AMLODIPINE 5 MG TABLET PO SCH (08:50)
[2018-01-18] MEDS: PARICALCITOL 1 MCG CAPSULE PO SCH (08:50)
[2018-01-18] MEDS: VICTOZA 1.8 MG SQ SCH (08:50)
[2018-01-18] MEDS: SODIUM CHLORIDE FLUSH 10ML SYR IVF SCH ×2 (09:00→21:00)
[2018-01-18] MEDS ORDERED: FUROSEMIDE 40 MG TABLET PO PRN (10:30)
[2018-01-18 10:31] VITALS: BP 115/67
[2018-01-18 12:55] VITALS: BP 142/77
[2018-01-18 18:35] VITALS: BP 113/62
[2018-01-18] MEDS: ATORVASTATIN 10 MG TABLET PO SCH (21:03)
[2018-01-18] MEDS: INSULIN GLARGINE 100 UNITS/ML, PEN SQ-INSULIN SCH (21:03)
[2018-01-19 02:00] VITALS: BP 122/70
[2018-01-19] MEDS: LEVOTHYROXINE 25 MCG TABLET PO SCH (05:29)
[2018-01-19] MEDS: HEPARIN 5,000 UNITS/ML, 1ML SQ SCH (05:29)
[2018-01-19] MEDS: INSULIN LISPRO 100 UNITS/ML, PEN SQ-INSULIN SCH ×2 (07:00→11:39)
[2018-01-19] MEDS: VICTOZA 1.8 MG SQ SCH (07:59)
[2018-01-19] MEDS: SODIUM CHLORIDE FLUSH 10ML SYR IVF SCH (09:00)
[2018-01-19] MEDS ORDERED: LOSARTAN 50MG TABLET PO SCH (09:00)
[2018-01-19] MEDS: PARICALCITOL 1 MCG CAPSULE PO SCH (09:00)
[2018-01-19] MEDS: CEFTAROLINE 600 MG in SODIUM CHLORIDE 0.9% 100 ML IV SCH (09:47)
[2018-01-19] MEDS: FLUTICASONE/VILANTEROL 200-25MCG/INH INH SCH (09:47)
[2018-01-19 09:59] VITALS: BP 112/65
[2018-01-19] MEDS ORDERED: LOSA50TA2 PO (10:37)
[2018-01-19] MEDS ORDERED: ACET325T14 PO (10:37)
[2018-01-19] MEDS ORDERED: CEFT600V IVPB (10:37)
== END 2018-01-19 13:19 | disposition home or self-care (01) | DRG 628 ==
LOC: ED 14:04 → EDIP 14:05 → 3NE 15:00 → DCLOUNGE 01-19 12:57
PROVIDERS: ADMIT Internal Medicine; ATTEND Family Medicine
PROC: 0LSP0ZZ Reposition Left Lower Leg Tendon, Open Approach (ICD-10-PCS; principal; 2018-01-09)
PROC: 0QBR0ZZ Excision of Left Toe Phalanx, Open Approach (ICD-10-PCS; 2018-01-09)
PROC: 0QBR0ZX Excision of Left Toe Phalanx, Open Approach, Diagnostic (ICD-10-PCS; 2018-01-09)
PROC: 02HV33Z Insertion of Infusion Device into Superior Vena Cava, Percutaneous Approach (ICD-10-PCS; 2018-01-17)
PROC: B5181ZA Fluoroscopy of Superior Vena Cava using Low Osmolar Contrast, Guidance (ICD-10-PCS; 2018-01-17)
DX: E11.621 Type 2 diabetes mellitus with foot ulcer (principal); E43 Unspecified severe protein-calorie malnutrition; L03.116 Cellulitis of left lower limb; L02.612 Cutaneous abscess of left foot; M86.172 Other acute osteomyelitis, left ankle and foot; E11.69 Type 2 diabetes mellitus with other specified complication; N17.0 Acute kidney failure with tubular necrosis; N18.4 Chronic kidney disease, stage 4 (severe); I12.9 Hypertensive chronic kidney disease with stage 1 through stage 4 chronic kidney disease, or unspecified chronic kidney disease; E03.9 Hypothyroidism, unspecified; E11.22 Type 2 diabetes mellitus with diabetic chronic kidney disease; E78.5 Hyperlipidemia, unspecified; Z88.0 Allergy status to penicillin; D63.8 Anemia in other chronic diseases classified elsewhere; E11.622 Type 2 diabetes mellitus with other skin ulcer; E11.65 Type 2 diabetes mellitus with hyperglycemia; E78.00 Pure hypercholesterolemia, unspecified; E87.5 Hyperkalemia; J45.909 Unspecified asthma, uncomplicated; L97.509 Non-pressure chronic ulcer of other part of unspecified foot with unspecified severity; M06.9 Rheumatoid arthritis, unspecified; Z79.899 Other long term (current) drug therapy; Z82.49 Family history of ischemic heart disease and other diseases of the circulatory system; Z83.3 Family history of diabetes mellitus; Z87.891 Personal history of nicotine dependence; Z89.421 Acquired absence of other right toe(s); Z90.49 Acquired absence of other specified parts of digestive tract; Z90.710 Acquired absence of both cervix and uterus; Z98.84 Bariatric surgery status
CPT/HCPCS: 36415; 36569; 76937; 77001; 80048; 80053; 80202; 82040; 82962; 83036; 83735; 85025; 85610; 87040; 87070; 87075; 87176; 87186; 87205; 93306; 96365; 99285; G0378; J0690; J0712; J1644; J2020; J2250; J2405; J2543; J2704; J3010; J3370; J3490; Q0162; C1751; J1815; J7040; J7050

== ENCOUNTER 2018-04-16 10:59 | Inpatient (IN) | payer MEDICARE, OTHER ==
[~2018-04-16] VITALS: Ht 170.2 cm; Wt 119.2 kg
[~2018-04-16 10:59] MED LIST changes: +ACET325T14 PO; +AMLO-150 PO; -AMLO5TAB7 PO; +CEFT600V IVPB; +LOSA50TA2 PO
[2018-04-16] MEDS ORDERED: ASPIRIN 81 MG TABLET CHEW PO ONE (11:30)
[2018-04-16] MEDS ORDERED: NITROGLYCERIN SINGLE TAB 0.4 MG SL ONE (11:37)
[2018-04-16] MEDS ORDERED: ASPIRIN 81 MG TABLET CHEW ONE (11:38)
[2018-04-16] MEDS: NITROGLYCERIN SINGLE TAB 0.4 MG SL PRN ×2 (11:42→11:47)
[2018-04-16 11:53] LABS: BASOPHILS # (AUTO) 0.01 x10^3/uL (0-0.1); BASOPHILS % (AUTO) 0 % (0-1); EOSINOPHILS # (AUTO) 0.08 x10^3/uL (0-0.4); EOSINOPHILS % (AUTO) 1 % (1-7); LYMPHOCYTES # (AUTO) 0.39 x10^3/uL (1-3.4); LYMPHOCYTES % (AUTO) 5 % (22-44); MD NO; MEAN CORPUSCULAR HEMOGLOBIN 30.4 pg (27.0-34.8); MEAN CORPUSCULAR HGB CONC 34.1 g/dL (32.4-35.8); MEAN CORPUSCULAR VOLUME 89.3 fL (80-100); MEAN PLATELET VOLUME 7.8 fL (7.4-10.4); MONOCYTES # (AUTO) 0.51 x10^3/uL (0.2-0.8); MONOCYTES % (AUTO) 6 % (2-9); NEUTROPHILS # (AUTO) 7.74 x10^3/uL (1.8-6.8); NEUTROPHILS % (AUTO) 89 % (42-75); PLATELET COUNT 229 x10^3/uL (130-400); RED BLOOD COUNT 3.72 x10^6/uL (3.82-5.3); RED CELL DISTRIBUTION WIDTH 12.8 % (9.6-15.2)
[2018-04-16 12:02] LABS: INTERNATIONAL NORMALIZED RATIO 0.97 (0.93-1.1); PROTHROMBIN TIME 10.3 Seconds (9.6-11.5)
[2018-04-16 12:05] LABS: ALANINE AMINOTRANSFERASE 19 U/L (12-78); ALBUMIN 2.8 g/dL (3.4-5.0); ANION GAP 13 mmol/L (5-15); CALCIUM 8.7 mg/dL (8.5-10.1); CHLORIDE 100 mmol/L (98-107); CREATININE 3.63 mg/dL (0.55-1.02)
[2018-04-16 12:09] LABS: ALKALINE PHOSPHATASE 92 U/L (45-117); BILIRUBIN,TOTAL 0.5 mg/dL (0.2-1.0); TOTAL PROTEIN 6.8 g/dL (6.4-8.2); TROPONIN I < 0.015 ng/mL (0.000-0.045)
[2018-04-16] MEDS ORDERED: NITROGLYCERIN 0.4 MG/SPRAY SL PRN (13:00)
[2018-04-16] MEDS ORDERED: DEXTROSE 50%, 50ML SYRINGE IVPush PRN (13:00)
[2018-04-16] MEDS ORDERED: DEXTROSE 4 GM TAB.CHEW PO PRN (13:00)
[2018-04-16] MEDS ORDERED: NITROGLYCERIN 0.4 MG BOTTLE (25 TABS) SL PRN (13:00)
[2018-04-16] MEDS ORDERED: LABETALOL 5MG/ML, 20ML IVPush PRN (13:00)
[2018-04-16] MEDS ORDERED: GLUCAGON 1 MG IM PRN (13:00)
[2018-04-16] MEDS ORDERED: HYDROmorphone 2 MG/ML, 1ML IVPush PRN (13:00)
[2018-04-16] MEDS: INSULIN LISPRO 100 UNITS/ML, PEN SQ-INSULIN SCH ×3 (13:00→21:48)
[2018-04-16] MEDS ORDERED: GUAIFENESIN/COD200MG-20MG/10ML LIQUID PO PRN (13:00)
[2018-04-16] MEDS ORDERED: ACETAMINOPHEN 325 MG TABLET PO PRN (13:00)
[2018-04-16] MEDS ORDERED: DILTIAZEM 5 MG/ML, 5ML IVPush PRN (13:00)
[2018-04-16] MEDS ORDERED: hydrALAzine 20 MG/ML, 1ML IVPush PRN (13:00)
[2018-04-16] MEDS ORDERED: ONDANSETRON 2MG/ML, 2ML IVPush PRN (13:00)
[2018-04-16 13:15] VITALS: BP 162/78
[2018-04-16] MEDS: METOPROLOL TARTRATE 50 MG TABLET PO SCH ×2 (13:24→21:10)
[2018-04-16] MEDS: HEPARIN 5,000 UNITS/ML, 1ML SQ SCH ×2 (13:25→21:10)
[2018-04-16 18:41] LABS: TROPONIN I < 0.015 ng/mL (0.000-0.045)
[2018-04-16 19:25] VITALS: BP 127/81
[2018-04-16] MEDS ORDERED: ATORVASTATIN 10 MG TABLET PO SCH (21:00)
[2018-04-16] MEDS ORDERED: INSULIN GLARGINE 100 UNITS/ML, PEN SQ-INSULIN SCH (21:00)
[2018-04-16] MEDS: SODIUM CHLORIDE FLUSH 10ML SYR IVF SCH (21:10)
[2018-04-17 00:03] LABS: TROPONIN I < 0.015 ng/mL (0.000-0.045)
[2018-04-17 01:15] VITALS: BP 110/69
[2018-04-17 05:37] LABS: ANION GAP 14 mmol/L (5-15); CALCIUM 8.4 mg/dL (8.5-10.1); CHLORIDE 102 mmol/L (98-107); CREATININE 3.13 mg/dL (0.55-1.02)
[2018-04-17 05:39] LABS: BASOPHILS # (AUTO) 0.01 x10^3/uL (0-0.1); BASOPHILS % (AUTO) 0 % (0-1); EOSINOPHILS # (AUTO) 0.32 x10^3/uL (0-0.4); EOSINOPHILS % (AUTO) 4 % (1-7); LYMPHOCYTES # (AUTO) 1.02 x10^3/uL (1-3.4); LYMPHOCYTES % (AUTO) 14 % (22-44); MD NO; MEAN CORPUSCULAR HEMOGLOBIN 30.6 pg (27.0-34.8); MEAN CORPUSCULAR HGB CONC 34.5 g/dL (32.4-35.8); MEAN CORPUSCULAR VOLUME 88.6 fL (80-100); MEAN PLATELET VOLUME 8.3 fL (7.4-10.4); MONOCYTES # (AUTO) 0.62 x10^3/uL (0.2-0.8); MONOCYTES % (AUTO) 8 % (2-9); NEUTROPHILS # (AUTO) 5.37 x10^3/uL (1.8-6.8); NEUTROPHILS % (AUTO) 73 % (42-75); PLATELET COUNT 232 x10^3/uL (130-400); RED BLOOD COUNT 3.26 x10^6/uL (3.82-5.3); RED CELL DISTRIBUTION WIDTH 12.8 % (9.6-15.2)
[2018-04-17] MEDS ORDERED: LEVOTHYROXINE 25 MCG TABLET PO SCH (06:00)
[2018-04-17] MEDS: HEPARIN 5,000 UNITS/ML, 1ML SQ SCH (06:21)
[2018-04-17] MEDS: INSULIN LISPRO 100 UNITS/ML, PEN SQ-INSULIN SCH (07:00)
[2018-04-17 07:01] VITALS: BP 110/68
[2018-04-17] MEDS ORDERED: PARICALCITOL 1 MCG CAPSULE PO SCH (09:00)
[2018-04-17] MEDS ORDERED: REGADENOSON 0.4 MG/5 ML SYRINGE ONE (10:33)
[2018-04-17] MEDS: SODIUM CHLORIDE FLUSH 10ML SYR IVF SCH (14:32)
[2018-04-17] MEDS: METOPROLOL TARTRATE 50 MG TABLET PO SCH (14:32)
[2018-04-17] MEDS ORDERED: APIX2.5T PO (15:19)
[2018-04-17] MEDS ORDERED: METO50TA82 PO (15:19)
== END 2018-04-17 16:34 | disposition home or self-care (01) | DRG 291 ==
LOC: ED 12:58 → EDIP 12:59 → 5SO 13:13
PROVIDERS: ADMIT Internal Medicine; ATTEND Family Medicine
DX: I13.0 Hypertensive heart and chronic kidney disease with heart failure and stage 1 through stage 4 chronic kidney disease, or unspecified chronic kidney disease (principal); I50.33 Acute on chronic diastolic (congestive) heart failure; N17.9 Acute kidney failure, unspecified; I31.3 Pericardial effusion (noninflammatory); E87.1 Hypo-osmolality and hyponatremia; D68.69 Other thrombophilia; N18.4 Chronic kidney disease, stage 4 (severe); I48.91 Unspecified atrial fibrillation; E11.22 Type 2 diabetes mellitus with diabetic chronic kidney disease; E03.9 Hypothyroidism, unspecified; E78.00 Pure hypercholesterolemia, unspecified; E78.5 Hyperlipidemia, unspecified; I07.1 Rheumatic tricuspid insufficiency; M06.9 Rheumatoid arthritis, unspecified; Z82.49 Family history of ischemic heart disease and other diseases of the circulatory system; Z90.710 Acquired absence of both cervix and uterus; Z87.891 Personal history of nicotine dependence; Z98.84 Bariatric surgery status; Z79.01 Long term (current) use of anticoagulants; Z79.899 Other long term (current) drug therapy; D64.9 Anemia, unspecified
CPT/HCPCS: 36415; 71045; 78452; 80048; 80053; 81003; 82962; 84443; 84484; 85025; 85610; 85730; 93005; 93017; 93306; 99285; G0378; J1644; J2785; A9502; C9898; J1815

== ENCOUNTER → 2018-04-28 | Outpatient (CLI) | payer MEDICARE, OTHER ==
[~2018-04-28] MED LIST changes: +AMLO10TA6 PO; +APIX2.5T PO; +AZIT500T5 PO; +LOSA25TA6 PO; +METO50TA82 PO
== END | disposition home or self-care (01) ==
LOC: CFH 11:04
PROVIDERS: ATTEND Internal Medicine Cardiovascular Disease
DX: J90 Pleural effusion, not elsewhere classified (principal); E11.22 Type 2 diabetes mellitus with diabetic chronic kidney disease; I12.9 Hypertensive chronic kidney disease with stage 1 through stage 4 chronic kidney disease, or unspecified chronic kidney disease; N18.4 Chronic kidney disease, stage 4 (severe); I48.0 Paroxysmal atrial fibrillation; Z79.01 Long term (current) use of anticoagulants
CPT/HCPCS: 71046

== ENCOUNTER 2018-05-01 09:27 | Inpatient (IN) | payer MEDICARE, OTHER ==
[~2018-05-01] VITALS: Ht 165.1 cm; Wt 120.6 kg
[~2018-05-01 09:27] MED LIST changes: -AMLO10TA6 PO; -AZIT500T5 PO; -LOSA25TA6 PO
[2018-05-01 10:30] LABS: BASOPHILS # (AUTO) 0.01 x10^3/uL (0-0.1); BASOPHILS % (AUTO) 0 % (0-1); EOSINOPHILS # (AUTO) 0.09 x10^3/uL (0-0.4); EOSINOPHILS % (AUTO) 1 % (1-7); LYMPHOCYTES # (AUTO) 0.65 x10^3/uL (1-3.4); LYMPHOCYTES % (AUTO) 9 % (22-44); MD NO; MEAN CORPUSCULAR HEMOGLOBIN 29.5 pg (27.0-34.8); MEAN CORPUSCULAR HGB CONC 33.4 g/dL (32.4-35.8); MEAN CORPUSCULAR VOLUME 88.3 fL (80-100); MEAN PLATELET VOLUME 7.4 fL (7.4-10.4); MONOCYTES # (AUTO) 0.44 x10^3/uL (0.2-0.8); MONOCYTES % (AUTO) 6 % (2-9); NEUTROPHILS # (AUTO) 6.46 x10^3/uL (1.8-6.8); NEUTROPHILS % (AUTO) 85 % (42-75); PLATELET COUNT 283 x10^3/uL (130-400); RED BLOOD COUNT 3.54 x10^6/uL (3.82-5.3); RED CELL DISTRIBUTION WIDTH 14.4 % (9.6-15.2)
[2018-05-01 10:32] LABS: INTERNATIONAL NORMALIZED RATIO 1.14 (0.93-1.1)
[2018-05-01 10:34] LABS: ALANINE AMINOTRANSFERASE 24 U/L (12-78); ALBUMIN 2.8 g/dL (3.4-5.0); ANION GAP 10 mmol/L (5-15); CALCIUM 8.2 mg/dL (8.5-10.1); CHLORIDE 110 mmol/L (98-107); CREATININE 2.49 mg/dL (0.55-1.02)
[2018-05-01 10:38] LABS: ALKALINE PHOSPHATASE 91 U/L (45-117); BILIRUBIN,TOTAL 0.7 mg/dL (0.2-1.0); TROPONIN I < 0.015 ng/mL (0.000-0.045)
[2018-05-01] MEDS ORDERED: LOSA25TA6 PO (11:46)
[2018-05-01] MEDS ORDERED: SODIUM CHLORIDE 0.9% 1,000 ML IV SCH (12:26)
[2018-05-01] MEDS ORDERED: DEXTROSE 50%, 50ML SYRINGE IVPush PRN (12:30)
[2018-05-01] MEDS ORDERED: ONDANSETRON 2MG/ML, 2ML IVPush PRN (12:30)
[2018-05-01] MEDS ORDERED: morphine SULFATE 10 MG/ML, 1ML IVPush PRN (12:30)
[2018-05-01] MEDS ORDERED: POLYETHYLENE GLYCOL 17 GM PACKET PO PRN (12:30)
[2018-05-01] MEDS ORDERED: TEMPLATE NON-FORMULARY MED. (Liraglutide (Victoza 3-Pak) 1.8 MG) SQ SCH (12:30)
[2018-05-01] MEDS: INSULIN LISPRO 100 UNITS/ML, PEN SQ-INSULIN SCH ×3 (12:30→20:06)
[2018-05-01] MEDS ORDERED: DEXTROSE 4 GM TAB.CHEW PO PRN (12:30)
[2018-05-01] MEDS ORDERED: DOCUSATE 100 MG CAPSULE PO PRN (12:30)
[2018-05-01] MEDS ORDERED: GLUCAGON 1 MG IM PRN (12:30)
[2018-05-01] MEDS ORDERED: LOSARTAN POTASSIUM 25 MG PO SCH (12:30)
[2018-05-01 12:51] VITALS: BP 152/74
[2018-05-01] MEDS ORDERED: AMLO10TA6 PO (12:59)
[2018-05-01] MEDS: PARICALCITOL 1 MCG CAPSULE PO SCH (13:57)
[2018-05-01] MEDS ORDERED: BUDESONIDE 0.5 MG/2 ML INHA NPPB SCH (14:00)
[2018-05-01] MEDS ORDERED: ALBUTEROL SULFATE 2.5 MG/3 ML NPPB SCH (15:00)
[2018-05-01 19:03] VITALS: BP 128/65
[2018-05-01] MEDS: ATORVASTATIN 10 MG TABLET PO SCH (20:04)
[2018-05-01] MEDS: METOPROLOL TARTRATE 50 MG TABLET PO SCH (20:05)
[2018-05-01] MEDS: SODIUM CHLORIDE FLUSH 10ML SYR IVF SCH (20:05)
[2018-05-01] MEDS: BUDESONIDE 0.5 MG/2 ML INHA NPPB SCH (20:51)
[2018-05-01] MEDS: ALBUTEROL SULFATE 2.5 MG/3 ML NPPB SCH (20:51)
[2018-05-01] MEDS ORDERED: TEMPLATE NON-FORMULARY MED. (Fluticasone/Salmeterol** (Advair 100-50 Diskus**) 1 PUFF) IH SCH (21:00)
[2018-05-02 01:34] VITALS: BP 127/66
[2018-05-02] MEDS: ALBUTEROL SULFATE 2.5 MG/3 ML NPPB SCH ×4 (02:59→20:32)
[2018-05-02 04:59] LABS: BASOPHILS # (AUTO) 0.03 x10^3/uL (0-0.1); BASOPHILS % (AUTO) 0 % (0-1); EOSINOPHILS # (AUTO) 0.17 x10^3/uL (0-0.4); EOSINOPHILS % (AUTO) 2 % (1-7); LYMPHOCYTES # (AUTO) 0.85 x10^3/uL (1-3.4); LYMPHOCYTES % (AUTO) 12 % (22-44); MD NO; MEAN CORPUSCULAR HGB CONC 33.6 g/dL (32.4-35.8); MEAN CORPUSCULAR VOLUME 89.1 fL (80-100); MEAN PLATELET VOLUME 7.5 fL (7.4-10.4); MONOCYTES # (AUTO) 0.58 x10^3/uL (0.2-0.8); MONOCYTES % (AUTO) 8 % (2-9); NEUTROPHILS # (AUTO) 5.27 x10^3/uL (1.8-6.8); NEUTROPHILS % (AUTO) 77 % (42-75); PLATELET COUNT 290 x10^3/uL (130-400); RED BLOOD COUNT 3.31 x10^6/uL (3.82-5.3); RED CELL DISTRIBUTION WIDTH 13.4 % (9.6-15.2)
[2018-05-02 05:12] LABS: ANION GAP 12 mmol/L (5-15); CALCIUM 7.9 mg/dL (8.5-10.1); CHLORIDE 111 mmol/L (98-107)
[2018-05-02 05:13] LABS: CREATININE 2.17 mg/dL (0.55-1.02)
[2018-05-02] MEDS: LEVOTHYROXINE 25 MCG TABLET PO SCH (05:39)
[2018-05-02] MEDS: INSULIN LISPRO 100 UNITS/ML, PEN SQ-INSULIN SCH ×4 (07:00→21:37)
[2018-05-02 07:01] VITALS: BP 138/74
[2018-05-02] MEDS: BUDESONIDE 0.5 MG/2 ML INHA NPPB SCH ×2 (07:08→20:32)
[2018-05-02] MEDS: SODIUM CHLORIDE FLUSH 10ML SYR IVF SCH ×2 (07:55→21:36)
[2018-05-02] MEDS: METOPROLOL TARTRATE 50 MG TABLET PO SCH ×2 (07:56→21:36)
[2018-05-02] MEDS: PARICALCITOL 1 MCG CAPSULE PO SCH (07:56)
[2018-05-02] MEDS: (Liraglutide (Victoza 3-Pak) 1.8 MG) SQ SCH (07:56)
[2018-05-02] MEDS: LOSARTAN 50MG TABLET PO SCH (07:56)
[2018-05-02 12:21] VITALS: BP 118/73
[2018-05-02] MEDS ORDERED: LEVALBUTEROL 45 MCG INH PRN (16:30)
[2018-05-02 18:46] VITALS: BP 112/66
[2018-05-02] MEDS: ATORVASTATIN 10 MG TABLET PO SCH (21:36)
[2018-05-02] MEDS: SENNA/DOCUSATE TABLET PO SCH (21:37)
[2018-05-03] VITALS (7 sets, daily range): BP systolic 117–156; BP diastolic 66–87
[2018-05-03] MEDS: ALBUTEROL SULFATE 2.5 MG/3 ML NPPB SCH ×3 (02:01→07:27)
[2018-05-03 05:06] LABS: BASOPHILS # (AUTO) 0.01 x10^3/uL (0-0.1); BASOPHILS % (AUTO) 0 % (0-1); EOSINOPHILS # (AUTO) 0.15 x10^3/uL (0-0.4); EOSINOPHILS % (AUTO) 2 % (1-7); LYMPHOCYTES # (AUTO) 0.89 x10^3/uL (1-3.4); LYMPHOCYTES % (AUTO) 14 % (22-44); MD NO; MEAN CORPUSCULAR HEMOGLOBIN 29.8 pg (27.0-34.8); MEAN CORPUSCULAR HGB CONC 33.3 g/dL (32.4-35.8); MEAN CORPUSCULAR VOLUME 89.3 fL (80-100); MEAN PLATELET VOLUME 7.4 fL (7.4-10.4); MONOCYTES % (AUTO) 10 % (2-9); NEUTROPHILS # (AUTO) 4.62 x10^3/uL (1.8-6.8); NEUTROPHILS % (AUTO) 74 % (42-75); PLATELET COUNT 278 x10^3/uL (130-400); RED BLOOD COUNT 3.57 x10^6/uL (3.82-5.3); RED CELL DISTRIBUTION WIDTH 14.1 % (9.6-15.2)
[2018-05-03 05:15] LABS: CHLORIDE 110 mmol/L (98-107)
[2018-05-03 05:19] LABS: ANION GAP 9 mmol/L (5-15); CALCIUM 8.5 mg/dL (8.5-10.1); CREATININE 2.08 mg/dL (0.55-1.02)
[2018-05-03] MEDS: LEVOTHYROXINE 25 MCG TABLET PO SCH (06:05)
[2018-05-03] MEDS: INSULIN LISPRO 100 UNITS/ML, PEN SQ-INSULIN SCH ×4 (06:05→21:46)
[2018-05-03] MEDS: BUDESONIDE 0.5 MG/2 ML INHA NPPB SCH (07:28)
[2018-05-03] MEDS: SENNA/DOCUSATE TABLET PO SCH (09:00)
[2018-05-03] MEDS: (Liraglutide (Victoza 3-Pak) 1.8 MG) SQ SCH (09:00)
[2018-05-03] MEDS: ADVAIR INH SCH ×3 (09:00→22:28)
[2018-05-03] MEDS ORDERED: LIDOCAINE-MPF 1%, 5ML ONE (09:19)
[2018-05-03] MEDS: PARICALCITOL 1 MCG CAPSULE PO SCH (09:41)
[2018-05-03] MEDS: METOPROLOL TARTRATE 50 MG TABLET PO SCH ×2 (09:42→21:45)
[2018-05-03] MEDS: SODIUM CHLORIDE FLUSH 10ML SYR IVF SCH ×2 (09:42→21:45)
[2018-05-03] MEDS: LOSARTAN 50MG TABLET PO SCH (09:42)
[2018-05-03] MEDS: OXYcodone IR 5MG TABLET PO PRN ×2 (10:58→21:45)
[2018-05-03] MEDS ORDERED: LIDOCAINE 1%, 20ML ONE (11:47)
[2018-05-03] MEDS ORDERED: FENTANYL PF 100 MCG/2ML ONE (11:47)
[2018-05-03] MEDS ORDERED: MIDAZOLAM 1 MG/ML, 5ML ONE (11:47)
[2018-05-03] MEDS ORDERED: ALBUTEROL SULFATE 2.5 MG/3 ML ONE ×2 (14:02→22:12)
[2018-05-03] MEDS: ACETAMINOPHEN 325 MG TABLET PO PRN (15:04)
[2018-05-03] MEDS: ATORVASTATIN 10 MG TABLET PO SCH (21:45)
[2018-05-04 01:04] VITALS: BP 143/81
[2018-05-04] MEDS: ACETAMINOPHEN 325 MG TABLET PO PRN ×2 (04:06→09:26)
[2018-05-04 05:34] LABS: HCT (SEDRATE) 32.2 % (34.6-47.8)
[2018-05-04 05:44] LABS: CHLORIDE 109 mmol/L (98-107)
[2018-05-04 06:03] LABS: ALANINE AMINOTRANSFERASE 13 U/L (12-78); ALBUMIN 2.3 g/dL (3.4-5.0); ALKALINE PHOSPHATASE 82 U/L (45-117); ANION GAP 8 mmol/L (5-15); BILIRUBIN,TOTAL 0.7 mg/dL (0.2-1.0); CALCIUM 8.4 mg/dL (8.5-10.1); CREATININE 2.12 mg/dL (0.55-1.02); TOTAL PROTEIN 6.2 g/dL (6.4-8.2)
[2018-05-04] MEDS: LEVOTHYROXINE 25 MCG TABLET PO SCH (06:28)
[2018-05-04] MEDS: ALBUTEROL SULFATE 2.5 MG/3 ML NPPB SCH ×2 (07:35→20:17)
[2018-05-04] MEDS: BUDESONIDE 0.5 MG/2 ML INHA INH SCH ×2 (07:35→20:17)
[2018-05-04 07:46] VITALS: BP 173/104
[2018-05-04] MEDS: INSULIN LISPRO 100 UNITS/ML, PEN SQ-INSULIN SCH ×4 (08:28→20:55)
[2018-05-04] MEDS: PARICALCITOL 1 MCG CAPSULE PO SCH (09:25)
[2018-05-04] MEDS: SODIUM CHLORIDE FLUSH 10ML SYR IVF SCH ×2 (09:25→20:55)
[2018-05-04] MEDS: METOPROLOL TARTRATE 50 MG TABLET PO SCH ×2 (09:26→20:55)
[2018-05-04] MEDS: SENNA/DOCUSATE TABLET PO SCH (09:26)
[2018-05-04] MEDS: LOSARTAN 50MG TABLET PO SCH (09:26)
[2018-05-04] MEDS: (Liraglutide (Victoza 3-Pak) 1.8 MG) SQ SCH (09:27)
[2018-05-04 13:26] VITALS: BP 122/74
[2018-05-04] MEDS: OXYcodone IR 5MG TABLET PO PRN (18:47)
[2018-05-04 19:15] VITALS: BP 138/73
[2018-05-04 20:44] VITALS: BP 148/73
[2018-05-04] MEDS: ATORVASTATIN 10 MG TABLET PO SCH (20:54)
[2018-05-04] MEDS: ADVAIR INH SCH (20:56)
[2018-05-05 01:39] VITALS: BP 132/78
[2018-05-05] MEDS: LEVOTHYROXINE 25 MCG TABLET PO SCH (05:23)
[2018-05-05 05:55] LABS: ALBUMIN 2.2 g/dL (3.4-5.0); ANION GAP 11 mmol/L (5-15); CALCIUM 8.2 mg/dL (8.5-10.1); CHLORIDE 111 mmol/L (98-107)
[2018-05-05 05:56] LABS: CREATININE 1.92 mg/dL (0.55-1.02)
[2018-05-05] MEDS: INSULIN LISPRO 100 UNITS/ML, PEN SQ-INSULIN SCH ×4 (07:00→20:34)
[2018-05-05 07:12] VITALS: BP 124/73
[2018-05-05] MEDS: ALBUTEROL SULFATE 2.5 MG/3 ML NPPB SCH ×2 (07:25→21:00)
[2018-05-05] MEDS: BUDESONIDE 0.5 MG/2 ML INHA INH SCH ×2 (07:25→21:00)
[2018-05-05] MEDS: (Liraglutide (Victoza 3-Pak) 1.8 MG) SQ SCH (09:00)
[2018-05-05] MEDS: ADVAIR INH SCH ×2 (09:00→20:26)
[2018-05-05] MEDS ORDERED: AZITHROMYCIN 500 MG TABLET PO SCH (09:00)
[2018-05-05] MEDS: ACETAMINOPHEN 325 MG TABLET PO PRN ×2 (09:34→14:36)
[2018-05-05] MEDS: SENNA/DOCUSATE TABLET PO SCH (09:34)
[2018-05-05] MEDS: LOSARTAN 50MG TABLET PO SCH (09:34)
[2018-05-05] MEDS: METOPROLOL TARTRATE 50 MG TABLET PO SCH ×2 (09:35→20:25)
[2018-05-05] MEDS: PARICALCITOL 1 MCG CAPSULE PO SCH (09:44)
[2018-05-05] MEDS: SODIUM CHLORIDE FLUSH 10ML SYR IVF SCH ×2 (09:45→20:26)
[2018-05-05] MEDS ORDERED: AZIT500T5 PO ×2 (11:25)
[2018-05-05 13:00] VITALS: BP 128/68
[2018-05-05] MEDS: ATORVASTATIN 10 MG TABLET PO SCH (20:25)
[2018-05-05 20:30] VITALS: BP 139/64
[2018-05-06] MEDS: ACETAMINOPHEN 325 MG TABLET PO PRN (01:09)
[2018-05-06 01:20] VITALS: BP 133/78
[2018-05-06 05:05] LABS: BASOPHILS # (AUTO) 0.02 x10^3/uL (0-0.1); BASOPHILS % (AUTO) 0 % (0-1); EOSINOPHILS # (AUTO) 0.25 x10^3/uL (0-0.4); EOSINOPHILS % (AUTO) 5 % (1-7); LYMPHOCYTES # (AUTO) 0.85 x10^3/uL (1-3.4); LYMPHOCYTES % (AUTO) 17 % (22-44); MD NO; MEAN CORPUSCULAR HEMOGLOBIN 29.2 pg (27.0-34.8); MEAN CORPUSCULAR HGB CONC 33.2 g/dL (32.4-35.8); MEAN PLATELET VOLUME 7.6 fL (7.4-10.4); MONOCYTES % (AUTO) 12 % (2-9); NEUTROPHILS # (AUTO) 3.42 x10^3/uL (1.8-6.8); NEUTROPHILS % (AUTO) 67 % (42-75); PLATELET COUNT 243 x10^3/uL (130-400); RED BLOOD COUNT 3.41 x10^6/uL (3.82-5.3); RED CELL DISTRIBUTION WIDTH 14.1 % (9.6-15.2)
[2018-05-06] MEDS: LEVOTHYROXINE 25 MCG TABLET PO SCH (06:48)
[2018-05-06] MEDS ORDERED: CLINDAMYCIN 300 MG CAPSULE PO ONE (07:00)
[2018-05-06] MEDS: INSULIN LISPRO 100 UNITS/ML, PEN SQ-INSULIN SCH ×2 (08:14→12:21)
[2018-05-06] MEDS: ALBUTEROL SULFATE 2.5 MG/3 ML NPPB SCH (09:10)
[2018-05-06] MEDS: BUDESONIDE 0.5 MG/2 ML INHA INH SCH (09:10)
[2018-05-06] MEDS: PARICALCITOL 1 MCG CAPSULE PO SCH (09:42)
[2018-05-06] MEDS: SENNA/DOCUSATE TABLET PO SCH (09:43)
[2018-05-06] MEDS: LOSARTAN 50MG TABLET PO SCH (09:43)
[2018-05-06] MEDS: METOPROLOL TARTRATE 50 MG TABLET PO SCH (09:45)
[2018-05-06] MEDS: ADVAIR INH SCH (09:46)
[2018-05-06] MEDS: SODIUM CHLORIDE FLUSH 10ML SYR IVF SCH (09:46)
[2018-05-06 09:50] VITALS: BP 122/71
[2018-05-06] MEDS: (Liraglutide (Victoza 3-Pak) 1.8 MG) SQ SCH (09:52)
[2018-05-06] MEDS ORDERED: CLIN300C8 PO (09:53)
[2018-05-06] MEDS ORDERED: MUPI22OI2 TP (09:53)
[2018-05-06] MEDS ORDERED: CLINDAMYCIN 300 MG CAPSULE PO SCH (13:00)
[2018-05-06] MEDS ORDERED: MUPIROCIN OINT 2%, 22GM TP SCH (18:00)
== END 2018-05-06 13:11 | disposition home or self-care (01) | DRG 314 ==
LOC: ED 10:49 → 5SO 11:06
PROVIDERS: ADMIT Family Medicine; ATTEND Internal Medicine
PROC: 0W9B3ZZ Drainage of Left Pleural Cavity, Percutaneous Approach (ICD-10-PCS; principal; 2018-05-03)
PROC: 0W9D30Z Drainage of Pericardial Cavity with Drainage Device, Percutaneous Approach (ICD-10-PCS; 2018-05-03)
DX: I30.9 Acute pericarditis, unspecified (principal); E43 Unspecified severe protein-calorie malnutrition; D68.69 Other thrombophilia; N18.5 Chronic kidney disease, stage 5; I13.11 Hypertensive heart and chronic kidney disease without heart failure, with stage 5 chronic kidney disease, or end stage renal disease; J90 Pleural effusion, not elsewhere classified; J98.11 Atelectasis; L03.113 Cellulitis of right upper limb; Z68.41 Body mass index [BMI] 40.0-44.9, adult; I48.0 Paroxysmal atrial fibrillation; D64.9 Anemia, unspecified; E03.9 Hypothyroidism, unspecified; E11.22 Type 2 diabetes mellitus with diabetic chronic kidney disease; E66.9 Obesity, unspecified; E78.00 Pure hypercholesterolemia, unspecified; E78.5 Hyperlipidemia, unspecified; J44.9 Chronic obstructive pulmonary disease, unspecified; M06.9 Rheumatoid arthritis, unspecified; Z79.01 Long term (current) use of anticoagulants; Z82.49 Family history of ischemic heart disease and other diseases of the circulatory system; Z87.891 Personal history of nicotine dependence; Z83.3 Family history of diabetes mellitus; Z90.710 Acquired absence of both cervix and uterus; Z98.84 Bariatric surgery status; Z88.0 Allergy status to penicillin; D63.1 Anemia in chronic kidney disease
CPT/HCPCS: 32555; 33010; 36415; 71045; 76930; 80048; 80053; 82040; 82945; 82962; 83615; 83735; 83880; 84157; 84443; 84484; 85025; 85610; 85651; 87070; 87075; 87205; 88112; 88305; 89051; 93005; 93308; 94640; 99156; 99157; 99285; C1729; G0378; J2250; J3010; J3490; J7613; J7626; J1815; J7030; Q9967

== ENCOUNTER → 2018-06-13 | Outpatient (CLI) | payer MEDICARE, OTHER ==
[~2018-06-13] MED LIST changes: +AMLO10TA8 PO; +AZIT500T5 PO; +CLIN300C8 PO; +LOSA100T14 PO; -LOSA100T7 PO; +LOSA25TA25 PO; +MUPI22OI2 TP
== END | disposition home or self-care (01) ==
LOC: CFH 08:32
PROVIDERS: ATTEND Nurse Practitioner Family
DX: I08.3 Combined rheumatic disorders of mitral, aortic and tricuspid valves (principal); I48.0 Paroxysmal atrial fibrillation; I10 Essential (primary) hypertension; E78.5 Hyperlipidemia, unspecified; E11.9 Type 2 diabetes mellitus without complications
CPT/HCPCS: 93306

== ENCOUNTER 2018-12-18 12:37 | Outpatient (CLI) | payer MEDICARE, OTHER | END 2018-12-18 23:59 | disposition home or self-care (01) | LOC: CFH 12:37 | PROVIDERS: ATTEND Internal Medicine Cardiovascular Disease | DX: I08.1 Rheumatic disorders of both mitral and tricuspid valves (principal); I31.3 Pericardial effusion (noninflammatory); I10 Essential (primary) hypertension; E78.5 Hyperlipidemia, unspecified; E11.9 Type 2 diabetes mellitus without complications; I48.91 Unspecified atrial fibrillation | CPT/HCPCS: 93306 ==

== ENCOUNTER → 2019-12-25 | Outpatient (CLI) | payer MEDICARE, OTHER ==
[~2019-12-25] MED LIST changes: +AZIT500T10 PO; -AZIT500T5 PO
== END | disposition home or self-care (01) ==
LOC: CVU 07:29
PROVIDERS: ATTEND Internal Medicine Cardiovascular Disease
DX: I08.3 Combined rheumatic disorders of mitral, aortic and tricuspid valves (principal); I65.23 Occlusion and stenosis of bilateral carotid arteries; I71.2 Thoracic aortic aneurysm, without rupture; E78.00 Pure hypercholesterolemia, unspecified
CPT/HCPCS: 93306; 93880

== ENCOUNTER → 2020-03-25 | Outpatient (CLI) | payer MEDICARE, OTHER ==
[~2020-03-25] MED LIST changes: +AMLO-211 PO; -AMLO10TA8 PO; +REGADENOSON 0.4 MG/5 ML SYRINGE ONE
== END | disposition home or self-care (01) ==
LOC: CFH 07:30
PROVIDERS: ATTEND Internal Medicine Cardiovascular Disease
DX: I25.9 Chronic ischemic heart disease, unspecified (principal); I71.2 Thoracic aortic aneurysm, without rupture
CPT/HCPCS: 78452; 93017; A9502; J2785